=== PATIENT | female | born 2005 | race Two or more races ===

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

== ENCOUNTER 2023-02-24 20:55 | Inpatient (IN) | payer MEDICAID, OTHER ==
[~2023-02-24] VITALS: Ht 152.4 cm; Wt 73.9 kg
[~2023-02-24 20:55] MED LIST changes: +DIVA-85 PO; +FLUO20CA36 PO; -HYDR-4527 PO; +LURA40TA4 PO; +MELA5TAB40 PO; +OMEG-135 PO; -SERT-439 PO
[2023-02-24] MEDS ORDERED: DiphenhydrAMINE HCL 50 MG CAPSULE PO ONE (21:45)
[2023-02-24] MEDS ORDERED: HALOPERIDOL 5 MG TABLET PO ONE (21:45)
[2023-02-24] MEDS ORDERED: LORazepam 2 MG TABLET PO ONE (21:45)
[2023-02-24 21:54] LABS: COVID AG,FIA SOURCE NASAL SWAB
[2023-02-24 21:57] LABS: BASOPHILS % (AUTO) 0.3 % (0.0-2.0); EOSINOPHILS % (AUTO) 0.6 % (1.0-6.0); HEMATOCRIT 38.4 % (36-46); HEMOGLOBIN 12.9 g/dL (12.0-16.0); LYMPHOCYTES # (AUTO) 1.8 K/uL (1.0-4.8); LYMPHOCYTES % (AUTO) 15.4 % (22.0-44.0); MEAN CORPUSCULAR HEMOGLOBIN 29.2 pg (26.0-34.0); MEAN CORPUSCULAR HGB CONC 33.7 G/dL (31.0-37.0); MEAN CORPUSCULAR VOLUME 87 fL (80-100); MONOCYTES # (AUTO) 0.7 K/uL (0.1-1.0); MONOCYTES % (AUTO) 5.9 % (2.0-9.0); NEUTROPHILS # (AUTO) 8.8 K/uL (1.8-7.7); NEUTROPHILS % (AUTO) 77.8 % (40.0-70.0); PLATELET COUNT (AUTO) 324 K/uL (150-450); RED BLOOD CELL COUNT(AUTO) 4.42 MIL/uL (4.00-5.20); RED CELL DISTRIBUTION WIDTH 12.4 % (11.5-14.5); WHITE BLOOD COUNT (AUTO) 11.3 K/uL (4.5-11.0)
[2023-02-24 22:03] LABS: ANION GAP 10 mmol/L (8-16); CALCIUM, TOTAL 9.5 mg/dL (8.8-10.5); CARBON DIOXIDE 26 mmol/L (22-29); CHLORIDE 106 mmol/L (98-107); CREATININE 0.83 mg/dL (0.60-1.30); GLOMERULAR FILTR. RATE CALC > 60 mL/min (>60); GLUCOSE,RANDOM 102 mg/dL (70-110); POTASSIUM 4.2 mmol/L (3.5-5.1); SODIUM SERUM 142 mmol/L (136-145); UREA NITROGEN, BLOOD 19 mg/dL (7-18)
[2023-02-24 22:08] LABS: ALANINE AMINOTRANSFERASE 13 U/L (12-78); ALBUMIN 4.1 g/dL (3.4-5.0); ALKALINE PHOSPHATASE 62 U/L (46-116); ASPARTATE AMINOTRANSFERASE 15 U/L (15-37); BILIRUBIN,TOTAL 0.1 mg/dL (0.1-1.0); TOTAL PROTEIN, SERUM 7.6 g/dL (6.4-8.2)
[2023-02-24 22:11] LABS: SARS-COV2 (COVID) ANTIGEN,FIA Negative (Negative)
[2023-02-24 22:16] LABS: ALCOHOL, BLOOD (SERUM) < 3 mg/dL (0-10)
[2023-02-25] MEDS ORDERED: ACETAMINOPHEN 325 MG TABLET PO PRN (01:00)
[2023-02-25] MEDS ORDERED: ZOLPIDEM TARTRATE 10 MG TABLET PO PRN (09:00)
[2023-02-25 10:35] LABS: PH,URINE DRUG SCREEN 6.5 (5.0-8.0)
[2023-02-25 10:36] LABS: APPEARANCE,URINE CLEAR (CLEAR); BILIRUBIN,URINE NEGATIVE (NEGATIVE); COLOR,URINE LIGHT YELLOW (YELLOW); GLUCOSE, URINE (UA) NEGATIVE (NEGATIVE); KETONES,URINE NEGATIVE (NEGATIVE); LEUKOCYTE ESTERASE ,URINE NEGATIVE (NEGATIVE); NITRATE,URINE NEGATIVE (NEGATIVE); OCCULT BLOOD,URINE NEGATIVE (NEGATIVE); PH,URINE 6.5 (5.0-8.0); PROTEIN,URINE NEGATIVE (NEGATIVE); SPECIFIC GRAVITIY, URINE 1.024 (1.003-1.030); UROBILINOGEN,URINE <=1.0 mg/dL (<=1.0)
[2023-02-25 10:41] LABS: ALCOHOL, URINE DRUG SCREEN NEGATIVE (NEGATIVE)
[2023-02-25 10:42] LABS: AMPHET/METH SCREEN,URINE NEGATIVE (NEGATIVE); BARBITURATE SCREEN, URINE NEGATIVE (NEGATIVE); BENZODIAZEPINES SCREEN,URINE NEGATIVE (NEGATIVE); CANNABINOID SCREEN,URINE NEGATIVE (NEGATIVE); COCAINE SCREEN,URINE NEGATIVE (NEGATIVE); METHADONE SCREEN, URINE NEGATIVE (NEGATIVE); OPIATE SCREEN,URINE NEGATIVE (NEGATIVE); PHENCYCLIDINE SCREEN,URINE NEGATIVE (NEGATIVE)
[2023-02-25] MEDS: HALOPERIDOL 5 MG TABLET PO PRN (16:49)
[2023-02-25] MEDS: LORazepam 2 MG TABLET PO PRN (16:50)
[2023-02-26 01:15] VITALS: BP 118/76; PULSE 76; RESP 18; TEMP 97.6
[2023-02-26] MEDS ORDERED: MAG HYDROX/ALUMINUM HYD/SIMETH ES 30 ML SUSPENSION UDCUP PO PRN (07:00)
[2023-02-26] MEDS ORDERED: OMEPRAZOLE 20 MG CAPSULE PO PRN (07:00)
[2023-02-26] MEDS ORDERED: DOCUSATE SODIUM 100 MG CAPSULE PO PRN (07:00)
[2023-02-26] MEDS ORDERED: CloNIDine HCL 0.1 MG TABLET PO PRN (07:00)
[2023-02-26] MEDS ORDERED: ONDANSETRON HCL 4 MG TABLET PO PRN (07:00)
[2023-02-26] MEDS ORDERED: LOPERAMIDE HCL 2 MG CAPSULE PO PRN (07:00)
[2023-02-26] MEDS ORDERED: ACETAMINOPHEN 325 MG TABLET PO PRN (07:00)
[2023-02-26] MEDS ORDERED: BENZOCAINE/MENTHOL LOZENGE PO PRN (07:00)
[2023-02-26] MEDS ORDERED: MAGNESIUM HYDROXIDE SUSPENSION 30 ML UDCUP PO PRN (07:00)
[2023-02-26] MEDS ORDERED: BACITRACIN 28 GM OINTMENT TP PRN (07:00)
[2023-02-26] MEDS ORDERED: IBUPROFEN 600 MG TABLET PO PRN (07:00)
[2023-02-26] MEDS ORDERED: ALBUTEROL SULFATE HFA 90 MCG/PUFF 8 GM INHALER IH PRN (07:00)
[2023-02-26] MEDS ORDERED: PETROLATUM,WHITE 28 GM JELLY TP PRN (07:00)
[2023-02-26 09:14] VITALS: BP 111/62; PULSE 80; RESP 17; TEMP 97
[2023-02-26] MEDS: LORazepam 2 MG TABLET PO PRN (09:51)
[2023-02-26] MEDS: HALOPERIDOL 5 MG TABLET PO PRN (09:51)
[2023-02-26] MEDS: DIVALPROEX SODIUM 500 MG DR TABLET PO SCH ×2 (12:03→16:42)
[2023-02-26] MEDS: CarBAMazepine 200 MG TABLET PO SCH (16:42)
[2023-02-26 21:04] VITALS: BP 96/54; PULSE 90; RESP 17; TEMP 97.7; O2SAT 98
[2023-02-27] MEDS: CarBAMazepine 200 MG TABLET PO SCH ×2 (08:30→16:38)
[2023-02-27] MEDS: DIVALPROEX SODIUM 500 MG DR TABLET PO SCH ×2 (08:30→16:38)
[2023-02-27] MEDS: LORazepam 2 MG TABLET PO PRN (10:43)
[2023-02-27] MEDS: HALOPERIDOL 5 MG TABLET PO PRN (10:43)
[2023-02-27 11:04] VITALS: BP 109/60; PULSE 100; RESP 18; TEMP 97.6; O2SAT 97
[2023-02-27 20:11] VITALS: RESP 18
[2023-02-28] VITALS (9 sets, daily range): BP systolic 110–127; BP diastolic 69–84; PULSE 84–112; RESP 16–18; TEMP 96.9–98; O2SAT 97–100
[2023-02-28] MEDS: DIVALPROEX SODIUM 500 MG DR TABLET PO SCH ×2 (08:31→17:00)
[2023-02-28] MEDS: CarBAMazepine 200 MG TABLET PO SCH (08:31)
[2023-02-28] MEDS: LORazepam 2 MG TABLET PO PRN (09:05)
[2023-02-28] MEDS: HALOPERIDOL 5 MG TABLET PO PRN (09:05)
[2023-03-01 08:16] VITALS: BP 116/69; PULSE 83; RESP 16; TEMP 97.6; O2SAT 98
[2023-03-01] MEDS: OXcarbazepine 300 MG TABLET PO SCH ×2 (08:20→16:54)
[2023-03-01] MEDS: LORazepam 2 MG TABLET PO PRN (08:20)
[2023-03-01] MEDS: DIVALPROEX SODIUM 500 MG DR TABLET PO SCH ×2 (08:20→16:54)
[2023-03-01] MEDS: HALOPERIDOL 5 MG TABLET PO PRN (08:20)
[2023-03-01 12:42] VITALS: BP 116/69; PULSE 83; RESP 16; TEMP 97.6; O2SAT 98
[2023-03-01] MEDS ORDERED: DIVA-112 PO (17:34)
== END 2023-03-01 18:15 | disposition home or self-care (01) | DRG 750 ==
LOC: EMS 20:58 → B3A 02-25 21:56
PROVIDERS: ADMIT Psychiatry & Neurology Psychiatry; ATTEND Psychiatry & Neurology Psychiatry
DX: F25.9 Schizoaffective disorder, unspecified (principal); G40.909 Epilepsy, unspecified, not intractable, without status epilepticus; R45.851 Suicidal ideations; F31.9 Bipolar disorder, unspecified; F41.9 Anxiety disorder, unspecified; Z20.822 Contact with and (suspected) exposure to COVID-19; F90.9 Attention-deficit hyperactivity disorder, unspecified type; G47.00 Insomnia, unspecified; K59.00 Constipation, unspecified; Z79.899 Other long term (current) drug therapy
CPT/HCPCS: 80053; 80164; 80307; 81003; 85025; 99291; G0480

== ENCOUNTER 2023-02-28 16:37 | Emergency (ER) | payer MEDICAID, OTHER ==
[~2023-02-28] VITALS: Ht 157.5 cm; Wt 75.0 kg
[2023-02-28 17:23] VITALS: BP 106/46; PULSE 96; RESP 16; TEMP 98.2
[2023-02-28 17:53] LABS: BASOPHILS % (AUTO) 0.2 % (0.0-2.0); EOSINOPHILS % (AUTO) 0.4 % (1.0-6.0); HEMATOCRIT 37.8 % (36-46); HEMOGLOBIN 13.1 g/dL (12.0-16.0); LYMPHOCYTES # (AUTO) 2.3 K/uL (1.0-4.8); LYMPHOCYTES % (AUTO) 22.3 % (22.0-44.0); MEAN CORPUSCULAR HEMOGLOBIN 29.7 pg (26.0-34.0); MEAN CORPUSCULAR HGB CONC 34.7 G/dL (31.0-37.0); MEAN CORPUSCULAR VOLUME 86 fL (80-100); MONOCYTES # (AUTO) 0.5 K/uL (0.1-1.0); MONOCYTES % (AUTO) 5.4 % (2.0-9.0); NEUTROPHILS # (AUTO) 7.3 K/uL (1.8-7.7); NEUTROPHILS % (AUTO) 71.7 % (40.0-70.0); PLATELET COUNT (AUTO) 331 K/uL (150-450); RED BLOOD CELL COUNT(AUTO) 4.41 MIL/uL (4.00-5.20); RED CELL DISTRIBUTION WIDTH 12.4 % (11.5-14.5); WHITE BLOOD COUNT (AUTO) 10.1 K/uL (4.5-11.0)
[2023-02-28 18:01] LABS: ANION GAP 14 mmol/L (8-16); CALCIUM, TOTAL 9.3 mg/dL (8.8-10.5); CARBON DIOXIDE 25 mmol/L (22-29); CHLORIDE 105 mmol/L (98-107); CREATININE 0.79 mg/dL (0.60-1.30); GLOMERULAR FILTR. RATE CALC > 60 mL/min (>60); GLUCOSE,RANDOM 90 mg/dL (70-110); SODIUM SERUM 144 mmol/L (136-145); UREA NITROGEN, BLOOD 16 mg/dL (7-18)
[2023-02-28 18:16] LABS: VALPROIC ACID 73 mcg/mL (50-100)
[2023-02-28 18:47] LABS: CARBAMAZEPINE (TEGRETOL) 21.2 mcg/mL (4.0-12.0)
[2023-03-01] MEDS ORDERED: DIVA-112 PO (17:34)
== END 2023-02-28 20:38 | disposition home or self-care (01) ==
LOC: EMS 16:40
DX: S00.531A Contusion of lip, initial encounter (principal); F25.9 Schizoaffective disorder, unspecified; R62.50 Unspecified lack of expected normal physiological development in childhood; R89.2 Abnormal level of other drugs, medicaments and biological substances in specimens from other organs, systems and tissues; R31.9 Hematuria, unspecified; F90.9 Attention-deficit hyperactivity disorder, unspecified type; W01.0XXA Fall on same level from slipping, tripping and stumbling without subsequent striking against object, initial encounter; Y93.89 Activity, other specified; Y92.89 Other specified places as the place of occurrence of the external cause; Y99.8 Other external cause status
CPT/HCPCS: 70486; 80048; 80156; 80164; 84703; 85025; 99284